=== PATIENT | female | born 1965 | race Asian ===

== ENCOUNTER → 2017-10-09 10:36 | Day surgery (SDC) | payer BC ==
[~2017-10-09 10:36] MED LIST: Buffered Lidocaine 0.9% SYRIN* 5 ML/SYR SYRINGE INTRADERM ONE; Buffered Lidocaine 0.9% SYRIN* 5 ML/SYR SYRINGE ONE; Bupivacaine 0.25% SDV* 30 ML ONE; Dexamethasone IV* 4 MG/ML 1 ML (4 MG) IV SLOW PU ONE; Dexamethasone IV* 4 MG/ML 1 ML (4 MG) ONE; Dexamethasone IV* 4 MG/ML 5 ML VIAL (20 MG) ONE; DiMENhydriNATE IV* 50 MG/ML VIAL IV PUSH PRN; Famotidine IV* 10 MG/ML 2 ML (20 mg) IV ONE; Famotidine IV* 10 MG/ML 2 ML (20 mg) ONE; HYDROmorphone INJ* 1 MG/ML CARPUJECT SYRINGE IV PRN; Ketorolac INJ* 30 MG/ML 1 ML VIAL ONE; Lidocaine 1% INJ* 10 MG/ML 30 ML SDV ONE; Midazolam* 1 MG/ML 5 ML VIAL (5 MG) ONE; Ondansetron INJ* 2 MG/ML VIAL IV PRN; Ondansetron INJ* 2 MG/ML VIAL ONE; Propofol* 10 MG/ML 20 ML BTL IV PUSH ONE; ceFAZolin 2 GM PREMIX (*) 2 GM/50 ML BAG IVPB ONE; fentaNYL* 50 MCG/ML 2 ML VIAL (100 MCG VIAL) IV PRN; fentaNYL* 50 MCG/ML 2 ML VIAL (100 MCG VIAL) ONE; oxyCODONE/Acetamin 5/325 MG* TAB PO PRN
[2017-10-09 15:02] VITALS: BP 141/73
--- NOTE | 2017-10-10 04:40 | OP ---
DATE OF OPERATION: 10/09/17 - [facility] DATE OF : 69 SURGEON: Ole Miller DPM ANESTHESIOLOGIST: Frank Mckinney MD ANESTHESIA: MAC PRE-OP DIAGNOSES: 1. Contracture, right foot. 2. Hypertrophic scar, right foot. POST-OP DIAGNOSES: 1. Contracture, right foot. 2. Hypertrophic scar, right foot. OPERATIVE PROCEDURE: 1. Lengthening of the right foot. 2. Skin plasty, right foot. ESTIMATED BLOOD LOSS: Less than 10 cc. IV FLUIDS: LR 1000 cc. DRAINS: None. SPECIMENS: None. DESCRIPTION OF PROCEDURE: The patient was taken to the operating room, was placed in the supine position, time-out was called and OR team agreed. The patient was then placed under sedation and then I proceeded to block the right foot in a fashion to the base of the metatarsal with 5 cc of 1% lidocaine plain. The foot was then prepped and draped in a sterile manner and the right foot was exsanguinated with an Esmarch bandage and the cuff was inflated to 250 mmHg. Attention was paid to the right foot. At the dorsal aspect of the right first metatarsophalangeal joint, there was a thick hypertrophic scar directly over an extensor tendon thus causing contracture at that juncture and joint. Because of the thick keloid scar, it was pulling up the big toe in a contracted dorsal flexed manner. I then proceeded to make a Z-type incision at the central arm where the hypertrophic scar was located, it was approximately 1 inch as of length. I then proceeded to make the distal arm at an angle of 30 degrees and a more proximal arm at an angle of 30 degrees as well. I then proceeded to dissect down the subcutaneous tissue. I paid attention to the extensor hallucis tendon, noted that tendon was contracted. It was severely fibrosed and adhesed down to the overlying skin and scar tissue as well as to the underlying deep fascia and capsule. I released the extensor tendon. I proceeded to make a Z-type lengthening to give it some length. This allowed some further flexion. I then proceeded to complete the Z-plasty where the flaps A and B were switched to B and A. This further gave us relaxation of the tension lines and was able to plantar flex the hallux in the forefoot where the forefoot was loaded in a plantigrade position. I then closed the wound with simple sutures of 4-0 nylon and injected the site with 5 cc of 0.25% Marcaine plain and 8 mg of dexamethasone phosphate. This completed the procedure. The cuff was deflated. The foot was then placed in a dry sterile dressing. [id number] #: [id number] MTDD
== END | disposition home or self-care (01) ==
LOC: OR 10:36
PROVIDERS: ATTEND Podiatrist
DX: M24.574 Contracture, right foot (principal); L91.0 Hypertrophic scar
CPT/HCPCS: 81025; J0690; J1100; J1885; J2001; J2250; J2405; J2704; J3010